=== PATIENT | female | born 1985 | race Caucasian/White ===

== ENCOUNTER 2018-01-09 20:00 | Emergency (ER) | payer OTHER ==
[~2018-01-09] VITALS: Ht 152.4 cm; Wt 66.2 kg
[2018-01-09] MEDS ORDERED: MOBIC7.5 MG PO (20:25)
[2018-01-09] MEDS ORDERED: TOBRADEX EYE DRO5 ML OPHTHALMIC (20:25)
[2018-01-09 20:55] VITALS: BP 117/61
[2018-01-09] MEDS ORDERED: CELEXA20 MG PO (21:05)
[2018-01-09] MEDS ORDERED: TRAZODONE 150150 M1 PO (21:05)
[2018-01-09] MEDS ORDERED: KLONOPIN0.5 MG PO (21:05)
== END 2018-01-09 20:50 | disposition home or self-care (01) ==
LOC: ER 20:00
DX: H00.022 Hordeolum internum right lower eyelid (principal); H00.025 Hordeolum internum left lower eyelid; M26.602 Left temporomandibular joint disorder, unspecified; F17.210 Nicotine dependence, cigarettes, uncomplicated